=== PATIENT | male | born 1940 | race Caucasian/White ===

== ENCOUNTER → 2016-10-20 | Outpatient (CLI) | payer OTHER ==
[2016-10-20 12:26] LABS: CREATININE 0.8 mg/dL (0.7-1.3)
== END ==
LOC: MRI 11:40
PROVIDERS: Internal Medicine
DX: R41.3 Other amnesia (principal)

== ENCOUNTER → 2016-11-13 | Outpatient (CLI) | payer OTHER | LOC: CAT 11:12 | DX: G31.9 Degenerative disease of nervous system, unspecified (principal) ==